=== PATIENT | male | born 1990 | race Caucasian/White ===

== ENCOUNTER 2024-07-31 00:39 | Emergency (ER) | payer BC, SELFPAY ==
[2024-07-31 00:41] VITALS: BP 162/92; PULSE 74; RESP 16; TEMP 36.6; O2SAT 99; BMI 27.3
--- NOTE | 2024-07-31 01:26 | EX.ED.VIS.PS ---
HPI HPI - Psych History of Present Illness Chief Complaint: Mental Health Informant: patient Narrative Narrative: 33-year-old male presenting for suicidal ideation and depression, anxiety, stress. He is here with his and family, he wants help. 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 He was telling his that he was making preparations for not being around anymore. He has financial difficulties and 4 children which is contributing to his stress, anxiety, depression, and suicidal ideation. He has a psychiatry appointment at the end of September but felt like he could not wait that long. He states he is paranoid. He denies any hallucinations. He states he is paranoid about his job, his marriage and does not discuss further details. He states he has periods of time where he is very manic and then he comes down hard. He was on antidepressants for a little over a year and stopped them last January. He does not use illicit substances. He was on an ADHD medication but stopped that about a week ago. [facility] Medical History Manic behavior Depression Home Medications ?Medication ?Instructions ?Recorded ?Last Taken ?Type NK 07/31/24 Unknown History Allergy/AdvReac Type Severity Reaction Status Date / Time No Known Allergies Allergy Verified 07/31/24 00:49 Social History Smoking Status: Current some day smoker tobacco type: cigarettes ROS ROS ED Constitutional Constitutional ED: Denies chills or fever(s) Eyes Eyes: Denies change in vision or diplopia ENT ENT ED: Denies rhinorrhea or sore throat Cardiovascular Cardiovascular: Denies chest pain or palpitations Respiratory/Chest Respiratory/Chest: Denies cough or dyspnea Gastrointestinal Gastrointestinal: Reports abdominal pain, diarrhea and other Details: Often gets upper abdominal pain soon after eating anything, and sometimes pain in her right lower quadrant that then resolves with the upper abdominal pain in an hour or 2. ; Denies hematochezia, melena, nausea or vomiting Genitourinary Genitourinary ED: Denies dysuria or hematuria Musculoskeletal Musculoskeletal: Denies back pain or neck pain Integumentary Denies abscess or rash Neurologic Neurologic: Denies headache(s), paresthesias or weakness Psychiatric Psychiatric: Reports depression, suicidal ideation and suicidal thoughts; Denies homicidal ideation EXAM Physical Exam Const Vital Signs: 07/31/24 00:41 07/31/24 01:40 Temperature 98 F Temperature Source Temporal Pulse Rate 74 70 Respiratory Rate 16 18 Blood Pressure 162/92 H 126/83 H Blood Pressure Mean 115 97 Pulse Ox 99 98 Oxygen Delivery Method Room Air Room Air Positive well nourished and well developed General Appearance ED: well developed and NAD HEENT Reports moist mucous membranes normocephalic and atraumatic Eyes PERRL and EOMs intact bilaterally General Eye ED: Negative for scleral icterus Neck no lymphadenopathy and supple Resp normal respiratory effort and clear to auscultation bilaterally Cardio no murmurs Rate: regular rate Rhythm: regular rhythm GI non-tender and non-distended Auscultation: normoactive bowel sounds Palpation: soft Back/Spine no CVA tenderness and normal ROM Extremity normal to inspection General Extremety ED: Negative for edema General Extremity: Negative for edema Neuro oriented x3, CN's II-XII intact bilaterally, no sensory deficits noted and gait normal Sensorium / Orientation: alert Motor Exam: strength 5/5 throughout Psych mental status grossly normal, thought process normal, cooperative, activity/motor behavior normal and denies homicidal ideation Mood & Affect: depressed Thought Content: suicidality Skin Lesions: no lesions Rashes: no rashes MDM MDM MDM Narrative Medical decision making narrative: Patient is insightful, wants help. He has been having some upper abdominal pain with eating, feels like his abdomen is on fire afterwards, he said he had some mucus in his stools in the past, he has had diarrhea for the past week that he thought was related to stress. This all may be related to stress or could be gastritis or he could have irritable bowel syndrome or inflammatory bowel disease. He does not require a CT of the abdomen/pelvis, but he will need an outpatient GI follow-up at some point if the symptoms persist after his psychiatric/mental health illness is dealt with and he is in agreement with that. Labs were obtained, alcohol and drug screen as well. All negative he is medically cleared for crisis to evaluate. They did, and they are in agreement, and working on placement. Patient is cooperative. History & Record Review Discussion w/independent historian: Patient and Family Lab Data Attestation: I reviewed the patient's lab results. Labs: Laboratory Results - last 24 hr 07/31/24 07/31/24 01:10 01:15 WBC 8.7 RBC 4.77 Hgb 14.1 Hct 41.2 MCV 86.4 MCH 29.6 MCHC 34.2 RDW Std Deviation 40.3 RDW Coeff of Mani 12.7 Plt Count 245 MPV 9.7 Immature Gran % (Auto) 0.200 Neut % (Auto) 51.3 Lymph % (Auto) 36.5 [place] % (Auto) 8.2 Eos % (Auto) 3.2 Baso % (Auto) 0.6 Absolute Neuts (auto) 4.5 Absolute Lymphs (auto) 3.17 Nucleated RBC % 0 Sodium 138 Potassium 3.7 Chloride 103 Carbon Dioxide 23.6 Anion Gap 11 BUN 18 Creatinine 0.89 Estim Creat Clear Calc 124.56 Est GFR (MDRD) Non-Af 115 BUN/Creatinine Ratio 20.0 Glucose 90 Calcium 9.2 Total Bilirubin 0.24 AST 24 ALT 21 Alkaline Phosphatase 66 Total Protein 7.1 Albumin 4.5 Globulin 2.7 Albumin/Globulin Ratio 1.7 Urine Opiates Screen NEGATIVE U Buprenorphine Qual NEGATIVE Ur Oxycodone Screen NEGATIVE Urine Methadone Screen NEGATIVE Urine Fentanyl Screen NEGATIVE Ur Barbiturates Screen NEGATIVE Ur Phencyclidine Scrn NEGATIVE Ur Amphetamines Screen NEGATIVE U Benzodiazepines Scrn NEGATIVE Urine Cocaine Screen NEGATIVE U Cannabinoids Screen NEGATIVE Ethyl Alcohol < 10.1 Management Discussion w/another healthcare provider: gathering worker/Case management Discharge Plan Triage Chief Complaint: Mental Health ED Provider: Phoenix Grullon Dx/Rx/DC Orders Clinical Impression: Suicidal ideation Prescriptions: No Action NK Primary Care Provider: Jacqueline Lucas Referrals: Jacqueline Lucas MD [[facility]] - Print Language: Swedish Disposition Disposition: Psychiatric Hospital or Unit
[2024-07-31 01:40] VITALS: BP 126/83; PULSE 70; RESP 18; O2SAT 98
[2024-07-31 01:48] LABS: Absolute Lymphocyte Count 3.17 X10^3/uL (0.83-4.51); Absolute Neutrophil Count 4.5 X10^3/uL (2.0-7.7); Basophil# 0.05 X10^3/uL; Basophil% 0.6 % (0-1); Eosinophil# 0.28 X10^3/uL; Eosinophils% 3.2 % (0-5); Hematocrit 41.2 % (40-54); Hemoglobin 14.1 g/dL (13.0-16.5); Lymphocyte # 3.17 X10^3/ul (0.83-4.51); Lymphocyte % 36.5 % (19-41); Mean Corp Hgb Conc 34.2 g/dL (32-36); Mean Corpuscular Hgb 29.6 pg (27.0-32.0); Mean Corpuscular Volume 86.4 fL (80-94); Mean Platelet Vol. 9.7 fl (6.2-12.0); Monocyte# 0.71 X10^3/uL; Monocyte% 8.2 % (0-10); NRBC Flagged by Analyzer 0 % (0-5); Neutrophil # 4.45 X10^3/uL (2.7-7.7); Neutrophil % 51.3 % (47-70); Platelet Count 245 K/mm3 (150-450); RBC Distribution Width CV 12.7 % (11.6-14.6); RBC Distribution Width SD 40.3 fl (35.1-43.9); Red Blood Count 4.77 M/mm3 (4.6-6.2); White Blood Count 8.7 K/mm3 (4.4-11.0)
[2024-07-31 02:03] LABS: Alcohol, Blood (Medical)-Serum < 10.1 mg/dL (<=10.0)
[2024-07-31 02:05] LABS: Amphetamine Urine NEGATIVE (<1000 ng/mL); Barbiturate Urine NEGATIVE (< 200 ng/mL); Benzodiazepine Urine NEGATIVE (< 200 ng/mL); Buprenorphine Urine NEGATIVE (< 200 ng/mL); Cocaine Urine NEGATIVE (< 300 ng/mL); Methadone Urine NEGATIVE (< 300 ng/mL); Opiates Urine NEGATIVE (< 300 ng/mL); Oxycodone, Urine NEGATIVE (< 100 ng/mL); PCP Urine NEGATIVE (< 25 ng/mL); THC Urine NEGATIVE (< 50 ng/mL)
[2024-07-31 02:05] LABS: ALB/GLOB Ratio 1.7 RATIO (0.9-2.4); AST(SGOT) 24 U/L (<=37); Alanine Aminotransfer ALT/SGPT 21 U/L (<=46); Albumin, Serum 4.5 g/dL (3.5-5.0); Alkaline Phosphatase 66 U/L (40-129); Anion Gap 11 (5-15); BUN 18 mg/dL (4-19); Calcium,Total 9.2 mg/dL (7.6-11.0); Carbon Dioxide 23.6 mmol/L (21.0-32.0); Chloride 103 mmol/L (98-108); Creatinine, Serum 0.89 mg/dL (0.70-1.20); EST Glomerular Filtration Rate 115 (>60); Estimated Creatinine Clearance 124.56 ml/min (50-250); Globulin 2.7 g/dL (2.2-4.2); Glucose 90 mg/dL (70-99); Potassium 3.7 mmol/L (3.3-5.1); Protein, Total 7.1 g/dL (5.9-8.4); Sodium Level 138 mmol/L (133-145); Total Bilirubin 0.24 mg/dL (0.00-1.30)
[2024-07-31 02:18] LABS: Fentanyl, Urine NEGATIVE
--- NOTE | 2024-07-31 07:48 | PCA ---
SCOOTER CALLED @ [phone] REFERRAL SENT OUT TO [facility]
--- NOTE | 2024-07-31 09:27 | PCA ---
SCOOTER CALLED AT @ 0905 PATIENT ACCEPTED AT [facility] BY DR. CASTILLO. GOING TO THE [place] [facility]. RIDE WILL BE HERE @ 1708.
[2024-07-31 11:00] VITALS: BP 130/78; PULSE 78; RESP 18; O2SAT 98
[2024-07-31 11:50] VITALS: BP 130/78; PULSE 78; RESP 18; TEMP 36.6; O2SAT 98
== END 2024-07-31 11:51 ==
PROVIDERS: Emergency Provider Emergency Medicine; PCP Internal Medicine; Visit Provider Emergency Medicine
DX: R45.851 Suicidal ideations (principal); R10.10 Upper abdominal pain, unspecified; R19.7 Diarrhea, unspecified; F17.210 Nicotine dependence, cigarettes, uncomplicated
CPT/HCPCS: 80053; 80307; 82077; 85025; 99284